=== PATIENT | male | born 1970 | race Caucasian/White ===

== ENCOUNTER 2025-08-04 10:32 | Inpatient (IN) ==
--- NOTE | 2025-08-04 10:44 | Emergency Department Note ---
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 Patient is accompanied by his mother who provide additional history. Approximately 2 weeks ago, the patient went on a trip to [facility] for hiking. He felt fatigued and lightheaded. Patient was also weak. He was finally urged by his friends to report to the emergency department. He was seen at a [facility] and found to have complete heart block leading to transfer to an ICU at a larger facility ([place], [place]). The patient was empirically treated for Lyme carditis. He remains on a doxycycline prescription. He has failed to improve. Again lightheaded and weak this morning. Called by the [employer] patch company to report to the emergency department given worsening bradycardia and concerns for third-degree AV block. He does state that he was originally on an antihypertensive but this was removed during last hospital admission. Notes that he was diagnosed with a blood clot in his left upper extremity and currently on Lovenox They deny fever or chills. No cough or congestion. Denies chest pain or palpitations. No shortness of breath. They deny abdominal pain, nausea and vomiting. No urinary complaints. No recent changes in bowel movements. Patient denies recent changes in medications or OTC supplements. Patient offers no other complaints, today. ADDITIONAL HISTORY OBTAINED: Per HPI Chronic Medical/Social Conditions Affecting Care: Per HPI PAST MEDICAL HISTORY: See Below PAST SURGICAL HISTORY: See Below FAMILY HISTORY: See Below SOCIAL HISTORY: See Below HOME MEDICATIONS: See Below ALLERGIES: See Below VITALS: See Below PHYSICAL EXAMINATION: GENERAL: Sitting up in bed, alert, well appearing, well nourished, no distress, non-toxic EYE EXAM: normal conjunctiva. PERRL and EOM's grossly intact. OROPHARYNX: no exudate, no erythema, lips, buccal mucosa, and tongue normal and mucous membranes are moist NECK: supple, no nuchal rigidity, no adenopathy, non-tender LUNGS: Clear to auscultation. Normal chest wall mechanics HEART: no murmurs, bradycardic rate, regular rhythm ABDOMEN: abdomen soft, non-tender, no masses, no rebound or guarding. BACK: Back is symmetrical on inspection and there is no deformity, no midline tenderness, no CVA tenderness. SKIN: no rashes and no bruising UPPER EXTREMITIES: upper extremities are grossly normal. LOWER EXTREMITIES: No pitting edema. NEURO EXAM: Normal sensorium, GCS 15, normal speech, no gross weakness of arms, no gross weakness of legs. MEDICAL DECISION MAKING: Differential diagnoses includes but not limited to high degree AVB, CHB, electrolyte derangements, ischemic disease, medication side effect, lyme carditis In summary, this is a 54 year old male who presented with CHB. Differential as above. Nursing notes and pertinent past medical records reviewed. Vital signs reviewed and the patient is bradycardic but otherwise afebrile and HDS. History and presentation revealed recent hospitalization in [place] ([facility]). He was in the ICU for CHB and ultimately discharged without intervention. He has had a ZIO patch in place. They continue to call him regarding worsening high degree AVB. Physical examination revealed no evidence of cardiogenic shock. As a result of my initial evaluation, we will plan to check basic labs and obtain lyme titers. I was connected with [facility] cardiology Dr. Gant at 1110. The patient will need a pacemaker. Plan for admission to the medicine service. Plan for metabolic workup. Please note the patient was treated empirically for Lyme carditis. He remains on doxycycline. I do not feel that the patient has Lyme carditis at this time. Patient and family report that he had negative testing at the outside facility. I would also expect the patient's condition to improve with antibiotics. Diagnostics interpreted by me include EKG and cardiac monitoring as listed below: -Cardiac Monitoring: An order was placed for continuous cardiac monitoring. The monitor shows a rate of 50-70s with regular rhythm. -ECG: Complete heart block at a rate of [address] segment changes to suggest STEMI. Patient completed laboratory studies and imaging. Results independently interpreted by me are minimal anemia. No significant leukocytosis. Isolated elevation of ALT. No elecrolyte derangements or kidney dysfunction. Lyme rapid is negative.. The patient was managed with close observation with [facility]. Plan for admission on telemetry for nonemergent PPM placement. Ultimately, the decision was made to admit the patient for CHB. I discussed the case with the hospitalist service via telephone/TigerText and they are agreeable to admit the patient to their services. Based on the above, including the patient's age, coexisting illnesses, labs, imaging, and exam findings the decision to treat as an inpatient. I discussed the patient with the hospitalist team who recommended admission to their services. They received the medications, treatments, interventions indicated above and their condition remained guarded. I discussed my findings with the patient and their family and they understand and agree with the treatment plan. All patient / family questions were answered to their satisfaction. Consults/Care Managements Discussions: Per MDM ER treatment provided: See above Procedures:none Critical Care: None The chart was completed utilizing [employer] Speech voice recognition software. Grammatical errors, random word insertions, pronoun errors, and incomplete sentences are an occasional consequence of this system due to software limitations, ambient noise, and hardware issues. Any formal questions or concerns about the content, text, or information contained within the body of this dictation should be directly addressed to the physician for clarification. Past Med/Surg History Problem List (Updated 08/06/25 @ 01:56 by Maulik Manzano DO) Anemia (Acute) AVB (atrioventricular block) (Acute) Complete heart block (Acute) Superficial thrombophlebitis (Acute) Acute basilic vein thrombosis (Acute) Social History Smoking Status: Never smoker Second Hand Exposure: No; Do You Dip or Chew Tobacco: No; Hx Alcohol Use: Yes Alcohol type: beer, wine and hard liquor Hx Substance Use: No Preferred Language: Brazilian Communication Ability: Effective Systems Testing Laboratory Technician Required: No Beliefs That Will Affect Care: None Current Living Situation: Spouse Other Information That Helps Us Care for You: No Feels Safe at Home: Yes Safety Concerns: Feels Safe At This Time Assistive Devices: None Allergies Allergies Allergy/AdvReac Type Severity Reaction Status Date / Time No Known Allergies Allergy Unverified 08/05/25 07:44 Home Meds Home Medications Medication Instructions Recorded Confirmed atorvastatin 10 mg tablet 10 mg PO DAILY 08/03/25 08/04/25 doxycycline hyclate 100 mg tablet 100 mg PO BID 08/03/25 08/04/25 olmesartan 20 mg tablet 20 mg PO DAILY 08/03/25 08/04/25 Previous Rx's Medication Instructions Recorded enoxaparin 40 mg/0.4 mL 40 mg (0.4 mL) subcut DAILY 45 08/03/25 subcutaneous syringe days #18 mL Results & Data (ED) Vital Signs Vital Signs - 24 hr 08/04/25 10:34 08/04/25 10:40 08/04/25 10:40 Temperature 37 C Temperature Source Temporal Artery Scan Pulse Rate 53 L Pulse Rate [Apical] 51 L Pulse Rate from SpO2 Sensor Respiratory Rate 18 16 Respiratory Effort / Characteristics Non-Labored Spontaneous Non-Labored Respiratory Depth Normal Normal Respiratory Pattern Regular Blood Pressure 165/94 H Blood Pressure [Right Arm] 145/94 H Blood Pressure Mean 117 Blood Pressure Mean [Right Arm] 111 Pulse Oximetry 100 100 Oxygen Delivery Method Room Air Room Air Sepsis Recent Fever Within 48 Hours No Sepsis New/Unexplained Change in Mental Status No Sepsis Action Taken by Nursing No Action Required 08/04/25 10:40 08/04/25 10:53 08/04/25 11:00 Temperature Temperature Source Pulse Rate 51 L 51 L Pulse Rate [Apical] Pulse Rate from SpO2 Sensor Respiratory Rate 16 Respiratory Effort / Characteristics Respiratory Depth Respiratory Pattern Blood Pressure 143/83 H Blood Pressure [Right Arm] Blood Pressure Mean 115 Blood Pressure Mean [Right Arm] Pulse Oximetry 99 100 Oxygen Delivery Method Room Air Room Air Sepsis Recent Fever Within 48 Hours Sepsis New/Unexplained Change in Mental Status Sepsis Action Taken by Nursing 08/04/25 11:15 08/04/25 11:30 08/04/25 11:33 Temperature Temperature Source Pulse Rate 51 L 71 68 Pulse Rate [Apical] Pulse Rate from SpO2 Sensor 69 Respiratory Rate 20 16 16 Respiratory Effort / Characteristics Respiratory Depth Respiratory Pattern Blood Pressure 175/108 H 163/103 H 144/98 H Blood Pressure [Right Arm] Blood Pressure Mean 131 120 113 Blood Pressure Mean [Right Arm] Pulse Oximetry 99 99 99 Oxygen Delivery Method Room Air Room Air Room Air Sepsis Recent Fever Within 48 Hours Sepsis New/Unexplained Change in Mental Status Sepsis Action Taken by Nursing Laboratory Data 08/04/25 10:55 08/05/25 05:29 Lab Results 08/04/25 Range/Units 10:55 WBC 6.23 (4.8-10.8) K/ul RBC 5.03 (4.70-6.10) M/uL Hgb 13.8 L (14.0-18.0) g/dl Hct 42.8 (42.0-52.0) % MCV 85.1 (80.0-100.0) fL MCH 27.4 (25.0-34.0) pg MCHC 32.2 (32.0-36.0) g/dL RDW Std Deviation 40.3 (36.4-46.3) fL RDW Coeff of Golden 13.1 (11.5-14.5) % Plt Count 295 (130-400) K/uL MPV 9.4 (9.4-12.4) fL Immature Gran % (Auto) 0.5 % Neut % (Auto) 54.2 % Lymph % (Auto) 24.9 % Crawford % (Auto) 12.7 % Eos % (Auto) 6.4 % Baso % (Auto) 1.3 % Neut # (Auto) 3.38 (1.40-6.50) K/uL Lymph # (Auto) 1.55 (1.20-3.40) K/uL Crawford # (Auto) 0.79 H (0.11-0.59) K/uL Eos # (Auto) 0.40 (0.00-0.50) K/uL Baso # (Auto) 0.08 (0.00-0.20) K/uL Immature Gran # (Auto) 0.03 (0.01-0.20) K/uL PT 10.6 (9.0-12.0) Seconds INR 1.0 (0.9-1.1) APTT 25 (21-31) Seconds PTT Ratio 0.9 Sodium 138 (136-145) mmol/L Potassium TNP Chloride 105 (98-107) mmol/L Carbon Dioxide 27 (21-32) mmol/L Anion Gap 6 (3-11) BUN 20 (6-23) mg/dl Creatinine 1.19 (0.6-1.4) mg/dl Est Cr Clr Drug Dosing 77.4 ml/min eGFR 71.69 BUN/Creatinine Ratio 16.8 (10-20) Glucose 94 (70-99(Fasting)) mg/dl Calcium 9.8 (8.6-10.3) mg/dl Phosphorus 3.6 (2.5-4.9) mg/dl Magnesium 2.2 (1.7-2.4) mg/dl Total Bilirubin 0.5 (0.2-1.0) mg/dl AST TNP ALT 73 H (7-52) U/L Alkaline Phosphatase 62 (34-104) U/L Troponin I High Sens 11.2 (0-20) pg/ml Total Protein 8.2 (6.0-8.3) gm/dl Albumin 4.4 (3.4-5.0) gm/dl Globulin 3.8 (2.5-4.0) gm/dl Albumin/Globulin Ratio 1.2 (0.9-2) Lipase 45 (11-82) U/L Anaplasma Smear See Comment Babesia Smear See Comment Lyme Disease Screen Negative (Negative) Administered Medications Acetaminophen (Acetaminophen 325 Mg Tab) 650 mg PO Q4H PRN PRN Reason: Pain or Fever Stop: 09/03/25 12:48 Last Admin: 08/05/25 19:40 Dose: 650 mg Documented By: Admin: 08/05/25 14:00 Dose: 650 mg Documented By: RUFUS Atorvastatin Calcium (Atorvastatin 10 Mg Tab) 10 mg PO DAILY [facility] Stop: 09/04/25 08:59 Last Admin: 08/05/25 12:32 Dose: 10 mg Documented By: RUFUS Losartan Potassium (Losartan Potassium 50 Mg Tab) 50 mg PO DAILY [facility] Stop: 09/04/25 08:59 Last Admin: 08/05/25 12:32 Dose: 50 mg Documented By: RUFUS Discontinued Medications Cefazolin Sodium (Cefazolin 330 Mg/Ml 1 Gm Vial) Confirm Administered Dose 1,980 mg .ROUTE .STK-MED ONE Stop: 08/05/25 07:30 Last Admin: 08/05/25 10:04 Dose: 1,980 mg Documented By: EVIN Fentanyl Citrate (Fentanyl Citrate Pf 100 Mcg/2 Ml Vial) Confirm Administered Dose 100 mcg .ROUTE .STK-MED ONE Stop: 08/05/25 07:30 Last Admin: 08/05/25 10:04 Dose: 100 mcg Documented By: EVIN Lidocaine HCl (Lidocaine 1% Local 20 Ml Vial) Confirm Administered Dose 20 ml .ROUTE .STK-MED ONE Stop: 08/05/25 06:50 Last Admin: 08/05/25 13:17 Dose: Not Given Documented By: CA Midazolam HCl (Midazolam Hcl 5 Mg/Ml 1 Ml Vial) Confirm Administered Dose 5 mg .ROUTE .STK-MED ONE Stop: 08/05/25 07:29 Last Increment: 08/05/25 10:03 Dose: 4 mg Documented By: EVIN Miscellaneous Information (Patient's Allergy Info Needs Entered) 1 each N/A Q30M STA Stop: 08/04/25 12:58 Last Admin: 08/04/25 13:17 Dose: 1 each Documented By: LMP Sterile Water (Water, Sterile For Inj 10 Ml Vial) Confirm Administered Dose 10 ml .ROUTE .STK-MED ONE Stop: 08/05/25 06:51 Last Admin: 08/05/25 13:17 Dose: Not Given Documented By: CA Vancomycin HCl (Vancomycin Hcl 1000mg/20ml Vial) Confirm Administered Dose 50 mg .ROUTE .STK-MED ONE Stop: 08/05/25 06:50 Last Admin: 08/05/25 13:17 Dose: Not Given Documented By: CA Imaging Data Radiologist's Impression: Chest X-Ray 08/04/25 10:44 XR chest 1V portable CLINICAL HISTORY: Chest pain, nonspecific COMPARISON STUDY: None FINDINGS: Heart size and pulmonary vasculature are normal. No consolidation or pleural effusion. No pneumothorax. IMPRESSION: No acute findings. ACT 112: Negative or not required by law. Electronically signed by: Shravan Kennedy M.D. 08/04/2025 11:06 AM Discharge Plan Visit Data Chief Complaint: Cardiac Assessment Stated Complaint: HAS HEART MONITOR ON, WAS CALLED TO COME IN ED Provider: Maulik Manzano Discharge Problem: Complete heart block, AVB (atrioventricular block), Anemia Patient Disposition: Admitted As Inpatient Condition: Serious Discharge Instructions Interventions: ED Discharge Assessment Last Done: 08/04/25 12:19
--- NOTE | 2025-08-04 11:07 | XRay Report ---
XR chest 1V portable CLINICAL HISTORY: Chest pain, nonspecific COMPARISON STUDY: None FINDINGS: Heart size and pulmonary vasculature are normal. No consolidation or pleural effusion. No p neumothorax. IMPRESSION: No acute findings. ACT 112: Negative or not required by law. Electronically signed by: Shravan Kennedy M.D. 08/04/2025 11:06 AM
[2025-08-04 11:08] LABS: Hematocrit (blood only) 42.8 % (42.0-52.0); Hemoglobin 13.8 g/dl (14.0-18.0); Immature Granulocytes # (auto) 0.03 K/uL (0.01-0.20); Immature Granulocytes % (auto) 0.5 %; Mean Corpuscular Hemoglobin 27.4 pg (25.0-34.0); Mean Corpuscular Volume 85.1 fL (80.0-100.0); Platelet Count 295 K/uL (130-400); RDW Standard Deviation 40.3 fL (36.4-46.3); Red Blood Count 5.03 M/uL (4.70-6.10); White Blood Count 6.23 K/ul (4.8-10.8)
[2025-08-04 11:50] LABS: Alanine Aminotransferase 73 U/L (7-52); Albumin Globulin Ratio 1.2 (0.9-2); Albumin Level 4.4 gm/dl (3.4-5.0); Alkaline Phosphatase 62 U/L (34-104); Anion Gap 6 (3-11); Bilirubin,Total 0.5 mg/dl (0.2-1.0); Blood Urea Nitrogen 20 mg/dl (6-23); Calcium 9.8 mg/dl (8.6-10.3); Carbon Dioxide 27 mmol/L (21-32); Chloride 105 mmol/L (98-107); Creatinine Clr Calc Pharmacy 77.4 ml/min; Globulin 3.8 gm/dl (2.5-4.0); Glucose 94 mg/dl (70-99(Fasting)); Lipase 45 U/L (11-82); Magnesium 2.2 mg/dl (1.7-2.4); Sodium 138 mmol/L (136-145); Total Protein 8.2 gm/dl (6.0-8.3)
[2025-08-04 12:15] LABS: INR 1.0 (0.9-1.1); Partial Thromboplastin Time 25 Seconds (21-31); Prothrombin Time 10.6 Seconds (9.0-12.0)
[2025-08-04] MEDS ORDERED: ONDANSETRON INJ 2 MG/ML 2 ML VIAL IV PRN (12:49)
[2025-08-04 12:54] LABS: Potassium 4.7 mmol/L (3.5-5.1)
--- NOTE | 2025-08-04 12:59 | History & Physical Report ---
Date of Service August 04, 2025 Assessment & Plan (1) Complete heart block: (2) Superficial thrombophlebitis: Plan 54-year-old man presents with symptomatic complete heart block with recent diagnosis of the same about 2 weeks ago. This was while hiking in [place]. Patient completed 10 days of doxycycline which will be discontinued. #Complete heart block placement on clutch operator. Patient of electrophysiology consultation. Attempting to get old records from [place]. Likely will repeat echo if not supplied in the report. Consideration for pacemaker n.p.o. after midnight. #Superficial phlebitis. Patient on Lovenox therapy. Distal be held for the possibility of a procedure. Admission and Anticipated Discharge Date Admission Date: August 04, 2025 History of Present Illness Primary Care Provider: Erik Aranda DO Patient presents for symptomatic complete heart block he is wearing his ZIO external clutch operator. 2 weeks ago he was in [facility] while hiking he felt fatigued and lightheaded. He was transported to a local hospital where is found to be in complete heart block and was then airlifted to [facility] in [place]. At that time he was treated for Lyme disease although Lyme serology testing was negative. He was continued on doxycycline postdischarge at the urging of his . Patient was recommended for follow-up here in the local area. He was also discharged on subcutaneous Lovenox for a left upper extremity blood clot associate with an IV patient presents with persistent symptoms. Retrospectively the patient states that he has been feeling some lightheadedness over the summer. This was attributed to hypertension and a new start of olmesartan. However now this might be some harbingers of symptoms. Additionally his mother of complications of cerebrovascular disease associated with rheumatoid toyed arthritis. Notably the patient does have some vitiligo and he may have an autoimmune component ER consulted Dr. Shah electrophysiology prior to admission and recommended bring the patient in for consideration of pacemaker placement. Upon my evaluation the patient had resume normal sinus rhythm with a heart rate in the 70s Allergies Allergy/AdvReac Type Severity Reaction Status Date / Time No Known Allergies Allergy Unverified 08/04/25 13:15 Home Medications Medication Instructions Recorded Confirmed Type atorvastatin 10 mg tablet 10 mg PO DAILY 08/03/25 08/04/25 History doxycycline hyclate 100 mg tablet 100 mg PO BID 08/03/25 08/04/25 History enoxaparin 40 mg/0.4 mL 40 mg (0.4 mL) subcut DAILY 45 08/03/25 08/04/25 Rx subcutaneous syringe days #18 mL olmesartan 20 mg tablet 20 mg PO DAILY 08/03/25 08/04/25 History Past Med/Surg History Problem List (Updated 08/04/25 @ 13:11 by Kerwin Antoine MD) Complete heart block Superficial thrombophlebitis (Acute) Acute basilic vein thrombosis (Acute) Social History Smoking Status: Never smoker Preferred Language: Danish Feels Safe at Home: Yes Review of Systems Review of Systems: Moderate distress, dizziness and fatigue no headache, no visual changes no speech or swallowing issues no chest pain, pressure or palpitations no shortness of breath, maybe mild cordero, no cough or wheezes no abdominal pain, nausea or vomiting, diarrhea or constipation no dysuria, hematuria or frequency no focal joint pain or swelling no back pain, CVA tenderness or radicular pain no bruising, bleeding or rashes no focal signs of weakness or numbness or altered sensation no complaints of anxiety or depression.. Physical Exam Physical Exam: The patient appeared well nourished and normally developed. Vital signs as documented. Head exam is normocephalic atraumatic Neck is without JVD, thyromegaly, or carotid bruits. Lungs are clear to auscultation, no focal loss of breath sounds Cardiac exam, Rhythm is regular.. No murmurs, rubs or gallops. Abdominal exam reveals normal bowel sounds, soft non tender, no masses Extremities are nonedematous and both pedal pulses are present Neurologic exam is alert and oriented, no focal loss of strength or sensation Skin is without bruises or rashes with the vitiligo on exam Psychologically is without concerns for anxiety or depression.. Results & Data Results & Data Vital Signs (Past 12 Hours) Vital Signs Temp Pulse Pulse Resp BP BP Pulse Ox 08/04/25 12:19 66 16 165/94 H 99 08/04/25 12:15 165/94 H 08/04/25 12:12 70 14 100 08/04/25 12:00 70 16 165/107 H 99 08/04/25 11:33 68 16 144/98 H 99 08/04/25 11:30 71 16 163/103 H 99 08/04/25 11:15 51 L 20 175/108 H 99 08/04/25 11:00 51 L 16 143/83 H 100 08/04/25 10:53 51 L 08/04/25 10:40 99 08/04/25 10:40 51 L 16 145/94 H 100 08/04/25 10:40 08/04/25 10:34 98.6 F 53 L 18 165/94 H 100 O2 Del Method 08/04/25 12:19 Room Air 08/04/25 12:15 08/04/25 12:12 08/04/25 12:00 Room Air 08/04/25 11:33 Room Air 08/04/25 11:30 Room Air 08/04/25 11:15 Room Air 08/04/25 11:00 Room Air 08/04/25 10:53 08/04/25 10:40 Room Air 08/04/25 10:40 Room Air 08/04/25 10:40 Room Air 08/04/25 10:34 Laboratory Results Reviewed CBC reviewed chemistry discussed case with Dr. Shah Code Status & VTE Plan VTE Prophylaxis Plan VTE Prophylaxis will be ordered: Yes PG Care Time/CCT Total # of Minutes Spent Total Time Spent with Patient: Total time spent is greater than 50% in coordination of care (as documented) at patient's floor/unit and/or counseling patient: Coding Level of Care Code 26865 INT INP/OBS CARE 2/55MIN Diagnoses Complete heart block I44.2 Superficial thrombophlebitis I80.8 Laterality: left Superficial thrombophlebitis-Involved body area: upper extremity (2) Superficial thrombophlebitis Laterality: left Superficial thrombophlebitis-Involved body area: upper extremity Qualified Code(s): I80.8 - Phlebitis and thrombophlebitis of other sites
[2025-08-04 13:31] LABS: Thyroid Stimulating Hormone 1.555 uIu/ml (0.300-4.500)
--- NOTE | 2025-08-04 15:04 | Cardiology Consultation ---
Date of Consultation August 04, 2025 Assessment & Plan (1) AVB (atrioventricular block): Plan 1. 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 This is consistent with his conduction pattern and his left bundle may conduct at lower heart rates but his right bundle pattern appears consistent. His right bundle block could potentially be old, I do not believe he has had an older electrocardiogram and he is not aware of this rhythm when he is in it. Perhaps his left bundle block pattern is a new finding and in the presence of a right bundle branch block results in high-grade or complete heart block. It does not appear to be Lyme related, there are infiltrative diseases that can cause it but that would not change our approach which would be pacemaker implantation. I discussed this with him in detail and his was part of the conversation on speaker phone using his cell phone. They are agreeable to pacemaker implantation and I have tentatively scheduled this for tomorrow morning at 8:00. It may be worthwhile to repeat the echocardiogram here to make sure he does not have some type of infiltrative disorder which would not change our approach with the pacemaker but might necessitate further evaluation or treatment. History of Present Illness Reason for Consultation: AV block Attending Physician: Kerwin Antoine MD History of Present Illness This is a 54-year-old male who has been quite healthy but is treated for hypercholesterolemia and hypertension. He was hiking in [place] on July 26, 2025 and developed extreme fatigue with exertion requiring him to use his hiking poles even on the flat. He had not really felt that way before although does note in retrospect that occasionally when he goes up the stairs he would feel a little bit of fatigue. He has had no lightheadedness, presyncope or syncope. He did go to a hospital in [place] where he had an evaluation including an evaluation for Lyme when the identified heart block (they felt that it probably was not Lyme but treated with doxycycline which he has been on since). He was told his echocardiogram looked good but we have not seen it or report. He was discharged with a ZIO monitor. He was seen in the [facility] emergency room on August 03, 2025 for diz ziness thrombophlebitis from his IV site the prior week. He was started on Lovenox for this. There was not felt to be any sign of infection. He has generally been feeling relatively well, in fact he went to the gym and played hockey with no difficulty but intermittently would feel a little bit "off" however his monitor is in [facility] and he was identified as having heart block during the night and he came into the emergency room this morning. In the emergency room high-grade AV block was identified (I do not think it is complete heart block as there are occasional conducted beats) although it is close to that. He still has not had severe hemodynamic symptoms. While in the emergency room he had high-grade AV block for several hours, however now on telemetry that has resolved. His electrocardiogram from the emergency room shows predominantly A-V dissociation but with what appears to be 1 conducted beat, he has a left bundle escape rhythm predominantly at about 50 bpm. An electrocardiogram done at the time of my evaluation shows sinus rhythm with one-to-one conduction and a right bundle branch block pattern. His heart rate is faster with the high-grade AV block and it may be a rate related block. Laboratory studies are unremarkable. Allergies Allergy/AdvReac Type Severity Reaction Status Date / Time No Known Allergies Allergy Unverified 08/04/25 13:15 Home Medications Medication Instructions Recorded Confirmed Type atorvastatin 10 mg tablet 10 mg PO DAILY 08/03/25 08/04/25 History doxycycline hyclate 100 mg tablet 100 mg PO BID 08/03/25 08/04/25 History enoxaparin 40 mg/0.4 mL 40 mg (0.4 mL) subcut DAILY 45 08/03/25 08/04/25 Rx subcutaneous syringe days #18 mL olmesartan 20 mg tablet 20 mg PO DAILY 08/03/25 08/04/25 History Patient History Social History Smoking Status: Never smoker Second Hand Exposure: No; Do You Dip or Chew Tobacco: No; Hx Alcohol Use: Yes Alcohol type: beer, wine and hard liquor Hx Substance Use: No Preferred Language: [employer] Required: No Beliefs That Will Affect Care: None Current Living Situation: Spouse Other Information That Helps Us Care for You: No Feels Safe at Home: Yes Safety Concerns: Feels Safe At This Time Assistive Devices: None Review of Systems Review of Systems: All systems reviewed & are unremarkable except as noted in HPI & below Physical Exam Physical Exam: Constitutional: Alert, cooperative and in no distress. HEENT: Unremarkable Neck: No jugular venous distention, carotid pulses are normal and equal bilaterally without bruits. Pulmonary: Clear to auscultation bilaterally. Cardiac: Regular rhythm with no murmur, gallop or rub. Abdomen: Soft, nontender with normal bowel sounds. Extremities: No edema. Distal pulses intact. Neurologic: No focal findings. Gait is steady. Skin: No rash, ecchymoses or petechiae. Results & Data Vital Signs (Past 12 Hours) Vital Signs Temp Pulse Pulse Resp BP BP Pulse Ox 08/04/25 12:52 36.5 C 64 152/92 H 100 08/04/25 12:19 66 16 165/94 H 99 08/04/25 12:15 165/94 H 08/04/25 12:12 70 14 100 08/04/25 12:00 70 16 165/107 H 99 08/04/25 11:33 68 16 144/98 H 99 08/04/25 11:30 71 16 163/103 H 99 08/04/25 11:15 51 L 20 175/108 H 99 08/04/25 11:00 51 L 16 143/83 H 100 08/04/25 10:53 51 L 08/04/25 10:40 99 08/04/25 10:40 51 L 16 145/94 H 100 08/04/25 10:40 08/04/25 10:34 37 C 53 L 18 165/94 H 100 O2 Del Method 08/04/25 12:52 Room Air 08/04/25 12:19 Room Air 08/04/25 12:15 08/04/25 12:12 08/04/25 12:00 Room Air 08/04/25 11:33 Room Air 08/04/25 11:30 Room Air 08/04/25 11:15 Room Air 08/04/25 11:00 Room Air 08/04/25 10:53 08/04/25 10:40 Room Air 08/04/25 10:40 Room Air 08/04/25 10:40 Room Air 08/04/25 10:34 Laboratory Results Cardiac Enzymes 08/04/25 08/04/25 Range/Units 10:55 12:10 AST TNP 59 H Troponin I High Sens 11.2 (0-20) pg/ml Coagulation 10/13/25 Range/Units 10:55 PT 10.6 (9.0-12.0) Seconds APTT 25 (21-31) Seconds CBC 08/04/25 Range/Units 10:55 WBC 6.23 (4.8-10.8) K/ul RBC 5.03 (4.70-6.10) M/uL Hgb 13.8 L (14.0-18.0) g/dl Hct 42.8 (42.0-52.0) % Plt Count 295 (130-400) K/uL Neut # (Auto) 3.38 (1.40-6.50) K/uL Lymph # (Auto) 1.55 (1.20-3.40) K/uL [place] # (Auto) 0.79 H (0.11-0.59) K/uL Eos # (Auto) 0.40 (0.00-0.50) K/uL Baso # (Auto) 0.08 (0.00-0.20) K/uL Comprehensive Metabolic Panel 08/04/25 08/04/25 Range/Units 10:55 12:10 Sodium 138 (136-145) mmol/L Potassium TNP 4.7 Chloride 105 (98-107) mmol/L Carbon Dioxide 27 (21-32) mmol/L BUN 20 (6-23) mg/dl Creatinine 1.19 (0.6-1.4) mg/dl Glucose 94 (70-99(Fasting)) mg/dl Calcium 9.8 (8.6-10.3) mg/dl AST TNP 59 H ALT 73 H (7-52) U/L Alkaline Phosphatase 62 (34-104) U/L Total Protein 8.2 (6.0-8.3) gm/dl Albumin 4.4 (3.4-5.0) gm/dl Intake and Output 08/03/25 08/04/25 08/04/25 22:59 06:59 14:59 Other: Weight 96.5 kg Weight Measurement Method Standing Scale Patient Weight 08/05/25 06:59 Weight 96.5 kg Diagnostic Findings Telemetry: Sinus rhythm with high-grade AV block in the emergency room, sinus rhythm with right bundle branch block (at a slower sinus rhythm) after admission on telemetry PG Care Time/CCT Total # of Minutes Spent Total Time Spent with Patient: Total time spent is greater than 50% in coordination of care (as documented) at patient's floor/unit and/or counseling patient: Coding Level of Care Code 27514 IN/OBS CONSULT LVL 4,60M Diagnoses AVB (atrioventricular block) I44.30
--- NOTE | 2025-08-04 16:16 | Electrocardiogram Report ---
Test Reason : Blood Pressure : */* mmHG Vent. Rate : 51 BPM Atrial Rate : 60 BPM P-R Int : * ms QRS Dur : 146 ms QT Int : 466 ms P-R-T Axes : 56 -66 93 degrees QTcB Int : 429 ms Sinus rhythm with high grade AV block and Wide QRS rhythm with occasional conducted complexes Left axis deviation Left bundle branch block Abnormal ECG No previous ECGs available Confirmed by Per Gant ([id number]) on 08/04/2025 4:15:44 PM Referred By: REFERRED SELF Confirmed By: Per Gant
--- NOTE | 2025-08-04 16:25 | Electrocardiogram Report ---
Test Reason : Blood Pressure : */* mmHG Vent. Rate : 77 BPM Atrial Rate : 77 BPM P-R Int : 200 ms QRS Dur : 144 ms QT Int : 428 ms P-R-T Axes : 51 64 31 degrees QTcB Int : 484 ms Normal sinus rhythm Right bundle branch block Abnormal ECG When compared with ECG of 04-Aug-2025 10:41, (unconfirmed) Sinus rhythm has replaced Wide QRS rhythm Vent. rate has increased by 26 bpm Confirmed by Per Gant ([id number]) on 08/04/2025 4:24:33 PM Referred By: REFERRED SELF Confirmed By: Per Gant
[2025-08-05 07:07] LABS: Anion Gap 7.0 (3-11); Blood Urea Nitrogen 19.0 mg/dl (6-23); Calcium 9.2 mg/dl (8.6-10.3); Carbon Dioxide 24.0 mmol/L (21-32); Chloride 107.0 mmol/L (98-107); Creatinine Clr Calc Pharmacy 78.8 ml/min; Glucose 91.0 mg/dl (70-99(Fasting)); Magnesium 2.1 mg/dl (1.7-2.4); Potassium 4.1 mmol/L (3.5-5.1); Sodium 138.0 mmol/L (136-145)
--- NOTE | 2025-08-05 07:29 | Hospitalist Progress Note ---
Date of Service August 05, 2025 Assessment & Plan (1) Complete heart block: (2) Superficial thrombophlebitis: Plan 54-year-old man presents with symptomatic complete heart block with recent diagnosis of the same about 2 weeks ago. This was while hiking in [place]. Patient completed 10 days of doxycycline which will be discontinued. #Complete heart block pacemaker placed, echo with preserved EF , echo not diagnostic for amyloid, but did show heterogeneous echogenicity, will have cardiac follow up as outpt #Superficial phlebitis. Patient on Lovenox therapy, may not need to continue post dc. Distal be held for the possibility of a procedure. Admission and Anticipated Discharge Date Admission Date: August 04, 2025 Subjective pt has significant symptomatic pauses in the cardiac pavilion, did have pacemaker placed and has paced rhythm at this time Physical Exam Physical Exam: The patient appeared well nourished and normally developed. Vital signs as documented. Head exam is normocephalic atraumatic Neck is without JVD, thyromegaly, or carotid bruits. Lungs are clear to auscultation, no focal loss of breath sounds Cardiac exam, Rhythm is regular.. No murmurs, rubs or gallops. Abdominal exam reveals normal bowel sounds, soft non tender, no masses Extremities are nonedematous and both pedal pulses are present Neurologic exam is alert and oriented, no focal loss of strength or sensation Skin is without bruises or rashes with the vitiligo on exam Psychologically is without concerns for anxiety or depression.. Results & Data Results & Data Vital Signs (Past 12 Hours) Vital Signs Temp Pulse Pulse Resp BP Pulse Ox O2 Del Method 08/05/25 04:10 98.4 F 61 18 135/83 97 Room Air 08/04/25 23:27 98.1 F 60 17 117/71 96 Room Air 08/04/25 22:23 64 PG Care Time/CCT Total # of Minutes Spent Total Time Spent with Patient: Total time spent is greater than 50% in coordination of care (as documented) at patient's floor/unit and/or counseling patient: Coding Level of Care Code 61705 SUB INP/OBS CARE 2/35MIN Diagnoses Complete heart block I44.2 Superficial thrombophlebitis I80.8 Laterality: left Superficial thrombophlebitis-Involved body area: upper extremity (2) Superficial thrombophlebitis Laterality: left Superficial thrombophlebitis-Involved body area: upper extremity Qualified Code(s): I80.8 - Phlebitis and thrombophlebitis of other sites
--- NOTE | 2025-08-05 08:35 | Pre Anesthesia Assessment ---
Date of Service August 05, 2025 Pre Sedation Assessment Vital Signs Temp Pulse Pulse Resp BP BP Pulse Ox 08/05/25 07:40 66 18 143/90 H 99 08/05/25 07:00 63 08/05/25 04:10 36.9 C 61 18 135/83 97 08/04/25 23:27 36.7 C 60 17 117/71 96 08/04/25 22:23 64 08/04/25 19:09 36.7 C 68 18 127/88 98 08/04/25 16:29 36.6 C 69 23 165/103 H 99 08/04/25 12:52 36.5 C 64 152/92 H 100 08/04/25 12:50 68 08/04/25 12:19 66 16 165/94 H 99 08/04/25 12:15 165/94 H 08/04/25 12:12 70 14 100 08/04/25 12:00 70 16 165/107 H 99 08/04/25 11:33 68 16 144/98 H 99 08/04/25 11:30 71 16 163/103 H 99 08/04/25 11:15 51 L 20 175/108 H 99 08/04/25 11:00 51 L 16 143/83 H 100 08/04/25 10:53 51 L 08/04/25 10:40 99 08/04/25 10:40 51 L 16 145/94 H 100 08/04/25 10:40 08/04/25 10:34 37 C 53 L 18 165/94 H 100 O2 Del Method 08/05/25 07:40 Room Air 08/05/25 07:00 08/05/25 04:10 Room Air 08/04/25 23:27 Room Air 08/04/25 22:23 08/04/25 19:09 Room Air 08/04/25 16:29 Room Air 08/04/25 12:52 Room Air 08/04/25 12:50 08/04/25 12:19 Room Air 08/04/25 12:15 08/04/25 12:12 08/04/25 12:00 Room Air 08/04/25 11:33 Room Air 08/04/25 11:30 Room Air 08/04/25 11:15 Room Air 08/04/25 11:00 Room Air 08/04/25 10:53 08/04/25 10:40 Room Air 08/04/25 10:40 Room Air 08/04/25 10:40 Room Air 08/04/25 10:34 Cardiovascular RRR, no murmur, no edema + bradycardic Respiratory normal respiratory effort, lungs clear to auscultation Pre-Sedation Airway Assessment Smoking Status: Never smoker Hx Sleep Apnea: No Short, Thick Neck: No Thyromental Distance: > or= 3.5 Finger Breadths Oral Cavity: + WNL Mallampati Class: III ASA: ASA3 NPO Status Date of Last Intake of Fluids: 08/04/25 Time of Last Intake of Fluids: 21:00 Date of Last Intake of Solid Food: 08/04/25 Time of Last Intake of Solid Foods: 20:00 Procedure Planning Contraindications for Sedation: none Current Medications Reviewed: Yes Notes The planned sedation has been discussed with the patient. Informed Consent was obtained. I have identified the patient, determined the appropriateness of sedation and have assessed the patient immediately prior to the procedure. All medicine(s) and interventions are by my order.
--- NOTE | 2025-08-05 08:37 | History & Physical Bridge Note ---
Date of Service August 05, 2025 History & Physical Bridge Note I have examined the patient, reviewed the History & Physical and in the interval since the performance of the History & Physical I have noted the following changes of clinical significance: He has continued to have episodes of heart block with a left bundle escape rhythm. I reviewed his echocardiogram and his ventricle appears quite thick and I am concerned that he might have sarcoid or amyloid, we will have to investigate that but that does not change our approach. I reviewed the indications, procedure, risks and alternatives with the patient with his present, and answered all questions. Patient understands and agrees to the procedure. Consent obtained. I also reviewed the risks and use of sedation, patient understands and consent obtained.
[2025-08-05] MEDS: MIDAZOLAM HCL 5 MG/ML 1 ML VIAL ONE (10:03)
[2025-08-05] MEDS: ceFAZolin 330 MG/ML 1 GM VIAL ONE (10:04)
--- NOTE | 2025-08-05 10:28 | Post Anesthesia Assessment ---
Date of Service August 05, 2025 Post Sedation Assessment Vital Signs Temp Pulse Pulse Resp BP BP Pulse Ox 08/05/25 07:40 66 18 143/90 H 99 08/05/25 07:00 63 08/05/25 04:10 36.9 C 61 18 135/83 97 08/04/25 23:27 36.7 C 60 17 117/71 96 08/04/25 22:23 64 08/04/25 19:09 36.7 C 68 18 127/88 98 08/04/25 16:29 36.6 C 69 23 165/103 H 99 08/04/25 12:52 36.5 C 64 152/92 H 100 08/04/25 12:50 68 08/04/25 12:19 66 16 165/94 H 99 08/04/25 12:15 165/94 H 08/04/25 12:12 70 14 100 08/04/25 12:00 70 16 165/107 H 99 08/04/25 11:33 68 16 144/98 H 99 08/04/25 11:30 71 16 163/103 H 99 08/04/25 11:15 51 L 20 175/108 H 99 08/04/25 11:00 51 L 16 143/83 H 100 08/04/25 10:53 51 L 08/04/25 10:40 99 08/04/25 10:40 51 L 16 145/94 H 100 08/04/25 10:40 08/04/25 10:34 37 C 53 L 18 165/94 H 100 O2 Del Method 08/05/25 07:40 Room Air 08/05/25 07:00 08/05/25 04:10 Room Air 08/04/25 23:27 Room Air 08/04/25 22:23 08/04/25 19:09 Room Air 08/04/25 16:29 Room Air 08/04/25 12:52 Room Air 08/04/25 12:50 08/04/25 12:19 Room Air 08/04/25 12:15 08/04/25 12:12 08/04/25 12:00 Room Air 08/04/25 11:33 Room Air 08/04/25 11:30 Room Air 08/04/25 11:15 Room Air 08/04/25 11:00 Room Air 08/04/25 10:53 08/04/25 10:40 Room Air 08/04/25 10:40 Room Air 08/04/25 10:40 Room Air 08/04/25 10:34 Recovery Score Activity: Moves 4 extremities Respiration: Deep Breath/Cough Circulation: +/-20% PreAnes Value Consciousness: Fully Awake Oxygen Saturation: > 92% On Room Air Discharge Sedation Level of Care: Fast Track Phase II Post Sedation Plan On clinical assessment, the patient appears to have tolerated the sedation without complications. Patient is recovering as anticipated. Patient will continue to be monitored by nursing and may be discharged when sedation discharge criteria are met per below protocol. Upon Completions of procedure up to 15 minutes continue every 5 minute vital signs and the P.A.R. score; then discharge to a Phase I or Fast Track to Phase II per the following guidelines: * Discharge Patient to appropriate Phase II area if PAR is 8 or greater or return to pre- procedure baseline. The post - procedure orders will be as di rected. * If PAR score is less than 8 or not return to pre-procedure baseline then patient will follow Phase I monitoring till PAR is reached for Phase II. The Phase I may be done in procedure room or may call to secure a Phase I area. * If naloxone or flumazenil are used for reversal, hold in Phase I for continued monitoring from when last reversal dose was given for a minimum of 60 minutes or longer pending the nurse and/or physician discretion of patient condition before discharge to Phase II. Please call the Sedation Physician to re-evaluate and complete post-note for discharge to Phase II area. Do NOT discharge from procedure sedation or Phase 1 until post- sedation evaluation note is complete by procedure /sedation MD Sedation Discharge Instructions to be given to the patient at discharge to home.
--- NOTE | 2025-08-05 10:31 | Electrophysiology Report ---
Date of Service August 05, 2025 Electrophysiology Procedure Electrophysiology Procedure Report Preoperative diagnosis: Intermittent complete heart block Postoperative diagnosis: Same Procedure: Dual-chamber left bundle branch pacemaker implantation Surgeon: Per Gant MD Estimated blood loss: 20 cc Complications: None Disposition: Content Curator recovery Procedure details: After obtaining informed consent for the procedure, the patient was brought to the laboratory and prepped and draped in the standard sterile manner. The left prepectoral region was anesthetized with 1% lidocaine local anesthetic and left axillary venipuncture was performed by percutaneous technique and a guidewire placed through the left subclavian vein into the superior vena cava. The area was further infiltrated with 1% lidocaine local anesthetic and a 5 cm incision was made parallel to the left clavicle and 2 cm below it and carried down to the anterior pectoralis fascia. A pacemaker pocket was formed by blunt dissection anterior to the pectoralis fascia and a vancomycin-soaked sponge was placed in the pocket. A 9 [place] Med[employer] lead introducer was placed over the guidewire into the left subclavian vein, the dilator and guidewire were removed and a bipolar active fixation steroid tipped atrial lead was advanced through the introducer into the superior vena cava. A guidewire was placed through the introducer and the introducer was stripped from the lead and guidewire. The atrial lead was temporarily positioned in the right ventricle for backup pacing. A 7 [place] Medtronic lead introducer was placed over the guidewire into the left subclavian vein, the dilator and guidewire were removed. A C315 His 02 septal sheath was advanced through the introducer over a guidewire and advanced into the right ventricular outflow tract. The guidewire and dilator were removed and the kate th was positioned in a mid septal location. A bipolar active fixation steroid tipped ventricular lead was advanced through the introducer and rotated to advance the screw into the septum. Septal penetration was confirmed by electrogram morphology. Pacing and sensing thresholds were evaluated in bipolar configuration and are noted on the data sheet. The septal sheath was stripped away from the lead. A guidewire was placed back through the introducer and the introducer was removed over the the guidewire. The atrial lead was then removed from the right ventricle. Using a curved stylette the atrial lead was positioned in the region of the atrial appendage and the screw extended fixing the lead in position. Pacing and sensing thresholds were evaluated in bipolar configuration and are recorded on the implant data sheet. Once the leads were in position they were attached to the anterior pectoralis fascia using 2 sutures of 2-0 silk around each lead collar. The vancomycin soaked sponge was removed from the pocket, hemostasis was obtained, the pacemaker was attached to the leads and placed in the pocket with the leads coiled beneath it. The incision was closed with a running double subcutaneous closure of 3-0 Vicryl absorbable suture, followed by running subcuticular skin closure of 4-0 Vicryl absorbable suture. Bacitracin ointment was placed on the incision and a dressing applied. [facility] [place] Electrophysiology codes Indication for Procedure (1) AVB (atrioventricular block): Pacing Procedure 1: Pacin Insert/Replace Pacer A & V PG Moderate Sedation Codes Moderate Sedation Codes Procedure 1: Sedation/Anesthesia: 05123 Mod Sedation by the same physician;Init15 Min Child Age 5 & Up Procedure 2: Sedation/Anesthesia: 16526 Mod Sedation by the same physician; Ea [id number] Minutes
[2025-08-05] MEDS ORDERED: ACETAMINOPHEN W/CODEINE #3 1 TAB PO PRN (10:47)
--- NOTE | 2025-08-05 11:25 | XCELERA ---
[id number]
[2025-08-05] MEDS: ATORVASTATIN 10 MG TAB PO SCH (12:32)
[2025-08-05] MEDS: LOSARTAN POTASSIUM 50 MG TAB PO SCH (12:32)
[2025-08-05] MEDS: LIDOCAINE 1% LOCAL 20 ML VIAL ONE (13:17)
[2025-08-05] MEDS: VANCOMYCIN HCL 1000MG/20ML VIAL ONE (13:17)
[2025-08-05] MEDS: WATER, STERILE FOR INJ 10 ML VIAL ONE (13:17)
[2025-08-05] MEDS: ACETAMINOPHEN 325 MG TAB PO PRN (14:00)
[2025-08-05] MEDS ORDERED: ENOXAPARIN INJ 40 MG/0.4 ML SYR SQ SCH (21:00)
[2025-08-06 06:55] LABS: Anion Gap 7.0 (3-11); Blood Urea Nitrogen 17.0 mg/dl (6-23); Calcium 9.3 mg/dl (8.6-10.3); Carbon Dioxide 25.0 mmol/L (21-32); Chloride 106.0 mmol/L (98-107); Creatinine Clr Calc Pharmacy 79.5 ml/min; Glucose 93.0 mg/dl (70-99(Fasting)); Magnesium 2.2 mg/dl (1.7-2.4); Potassium 4.3 mmol/L (3.5-5.1); Sodium 138.0 mmol/L (136-145)
--- NOTE | 2025-08-06 09:17 | Cardiology Progress Note ---
Date of Service August 06, 2025 Assessment & Plan (1) Status post placement of cardiac pacemaker: (2) AVB (atrioventricular block): (3) Cardiomyopathy: Plan 1. Pacemaker implantation: Postop day #1, the site looks good, the x-ray shows good lead placement and the pacemaker has excellent electrical parameters. He is stable for discharge. I will arrange a 2-day incision evaluation. 2. AV block: During the procedure yesterday he developed complete heart block without an escape rhythm, that will evidently be intermittent. The pacemaker can accommodate these changes. Today he has intact AV conduction at baseline, however when atrial pacing at 90 bpm he is 2-1 with his nikolski conduction. This is likely to progress over time. 3. Cardiomyopathy: I am concerned that he has some type of infiltrative cardiomyopathy, I did send off blood work for amyloid and after 30 days (assuming this is negative) we should get a cardiac MRI to exclude sarcoid which will be done as an outpatient. Guidelines are to wait 30 days after pacemaker implantation to perform an MRI. He does not have a dilated cardiomyopathy, it is hypertrophic but not obstructive, therefore I have not tested him for other causes of cardiomyopathy. Admission and Anticipated Discharge Date Admission Date: August 04, 2025 Subjective He is feeling well today, minimal incisional discomfort. No chest pain or shortness of breath. No palpitations or sensation of pacing. Physical Exam Physical Exam: The incision is clean and dry, no ecchymosis, erythema or swelling. Dressing changed. Cardiac rhythm is regular with no rub Lungs are clear Results & Data Vital Signs (Past 12 Hours) Vital Signs Temp Pulse Pulse Resp BP Pulse Ox O2 Del Method 08/06/25 08:46 63 08/06/25 08:04 36.6 C 84 20 119/85 97 Room Air 08/06/25 03:44 36.9 C 73 18 115/85 96 Room Air 08/05/25 22:42 36.9 C 71 18 123/79 94 Room Air 08/05/25 21:44 70 Laboratory Results Comprehensive Metabolic Panel 08/06/25 Range/Units 05:29 Sodium 138 (136-145) mmol/L Potassium 4.3 (3.5-5.1) mmol/L Chloride 106 (98-107) mmol/L Carbon Dioxide 25 (21-32) mmol/L BUN 17 (6-23) mg/dl Creatinine 1.15 (0.6-1.4) mg/dl Glucose 93 (70-99(Fasting)) mg/dl Calcium 9.3 (8.6-10.3) mg/dl Intake and Output 08/05/25 08/06/25 08/06/25 22:59 06:59 14:59 Intake Total 700 / 1050 350 / 1050 Balance 700 / 1050 350 / 1050 Intake: Oral 700 / 1050 350 / 1050 Other: # Unmeasured Voids 1 1 Weight 96.7 kg Weight Measurement Method Built in [facility] Diagnostic Findings Postop ECG: Sinus rhythm with atrial sensing and ventricular pacing, excellent left bundle paced complex morphology Telemetry: Sinus rhythm with ventricular pacing throughout Chest x-ray: Good lead position, no pneumothorax Pacemaker evaluation: Excellent pacing and sensing characteristics PG Care Time/CCT Total # of Minutes Spent Total Time Spent with Patient: Total time spent is greater than 50% in coordination of care (as documented) at patient's floor/unit and/or counseling patient: Coding Level of Care Code 09373 Post Operative Follow-Up Diagnoses Status post placement of cardiac pacemaker Z95.0 AVB (atrioventricular block) I44.30 Cardiomyopathy I42.9 CPT Codes Dual Lead Pacemaker System - [id number] ([id number])
--- NOTE | 2025-08-06 10:21 | XRay Report ---
XR chest 2V PA/lateral CLINICAL HISTORY: EXACT TIME ORDERED Evaluate for pneumothorax and l COMPARISON STUDY: 08/04/2025 FINDINGS: There is a left-sided cardiac pacemaker. No pneumothorax seen. No consolidation or pleural effusion. IMPRESSION: No pneumothorax. ACT 112: Negative or not required by law. Electronically signed by: Shravan Kennedy M.D. 08/06/2025 10:20 AM
[2025-08-06 10:24] VITALS: BP 137/95; PULSE 70; RESP 21; TEMP 98.1; O2SAT 98
[2025-08-06] MEDS: INFLUENZA VACC TS2025-26(6m+)/PF (IIV3) 0.5mL Syr IM ONE (11:09)
[2025-08-06] MEDS: PNEUMOCOCCAL VACCINE (PCV20) 20-VAL CONJ-DIP CRM/PF 0.5 ML SYR IM ONE (11:09)
--- NOTE | 2025-08-06 11:19 | Discharge Summary ---
Discharge Summary Date of Service August 06, 2025 Principal Dx & Hospital Course #1 = Principal Diagnosis (1) Complete heart block: (2) Superficial thrombophlebitis: Nilton Helton is a 54 year old male admitted to [facility] from August 04 to the 2024 due to symptomatic complete heart block on his ZIO external gambling monitor. This was treated with pacemaker insertion on August 05, [address] Gant. Pacemaker checks in the morning were normal and CXR did not show any pneumothorax. No specific treatment is recommended for your previously diagnosed superficial thrombophlebitis other than compression alone. If this is getting worse recommend he follows up with his primary care provider to consider repeat ultrasound and possible anticoagulation at that time. Echocardiogram was concerning for heterogeneous echogenicity which could represent infiltrative process in the myocardium versus normal variant. He will follow-up with cardiology for possible cardiac MRI for further evaluation of this. Amyloidosis labs have been sent and will also be followed by cardiology. Notes For Next Care Provider Follow up pacemaker check, labs for amyloidosis and possible cardiac MRI with electrophysiology Follow up superficial phlebitis with PCP Medication Changes From Visit Lovenox stopped as not needed for superficial phlebitis Stopped doxycycline as no evidence of lyme disease Admission HPI Per Admitting Provider Patient presents for symptomatic complete heart block he is wearing his ZIO external gambling monitor. 2 weeks ago he was in [facility] while hiking he felt fatigued and lightheaded. He was transported to a local hospital where is found to be in complete heart block and was then airlifted to [facility] in [place]. At that time he was treated for Lyme disease although Lyme serology testing was negative. He was continued on doxycycline postdischarge at the urging of his . Patient was recommended for follow-up here in the local area. He was also discharged on subcutaneous Lovenox for a left upper extremity blood clot associate with an IV patient presents with persistent symptoms. Retrospectively the patient states that he has been feeling some lightheadedness over the summer. This was attributed to hypertension and a new start of olmesartan. However now this might be some harbingers of symptoms. Additionally his mother of complications of cerebrovascular disease associated with rheumatoid toyed arthritis. Notably the patient does have some vitiligo and he may have an autoimmune component ER consulted Dr. Shah electrophysiology prior to admission and recommended bring the patient in for consideration of pacemaker placement. Upon my evaluation the patient had resume normal sinus rhythm with a heart rate in the 70s Discharge Exam Respiratory normal respiratory effort, lungs clear to auscultation Cardiovascular RRR, no murmur, no edema Discharge Plan Discharge Items Patient Disposition: Home - Self-Care Reason For Visit: COMPLETE HEART BLOCK Discharge Diagnosis: Complete heart block Superficial thrombosis Condition on Discharge: Serious Activity: Per Instructions section Non-emergency contact: Senior Project Manager Call non-emergency contact if: you have any medication questions and your symptoms worsen Follow-up/Referrals: Per Gant MD [Physician] - 08/20/25 2:00 pm (Cardiology follow up scheduled on 08/20/25 at 2:00) Erik Aranda DO [Primary Care Provider] - 08/13/25 9:00 am (Primary Care Hospital follow up schedule on 08/13/25 at 9:00) Diet: Regular Addtl Attending Provider Instructions: You were admitted to [facility] from August 04 to the 2024 due to symptomatic complete heart block with your ZIO external gambling monitor. This was treated with pacemaker insertion on August 05, [address] Gant. Pacemaker checks in the morning were normal and CXR did not show any pneumothorax. Please follow post operative instructions below. No specific treatment is recommended for your previously diagnosed superficial thrombophlebitis other than compression alone. If this is getting worse recommend contacting your primary care provider to consider repeat ultrasound and possible anticoagulation at that time. Please follow up with cardiology regarding ongoing workup of your cardiomyopathy including labs outstanding on discharge and plan to organize cardiac MRI as an outpatient. ACTIVITY RECOMMENDATIONS: * Do not raise affected arm over head for 2 weeks. SPECIAL CARE INSTRUCTIONS: * If bleeding occurs, apply direct pressure to area for 5 minutes. * Call your doctor if you have severe pain, fever, drainage or bleeding at site. * Keep dressing on and dry for 48 hours then remove. * Keep any scheduled doctor's appointment. * Implant Card - hand held device with website information given. SKIN IRRITATION: * You may experience some redness and/or swelling in the area where radiation was administered. If any skin irritation occurs, please contact your family physician. FOLLOW UP VISIT: Keep any scheduled doctor appointments. Pending Studies at Discharge: Yes (protein serum and urine electrophoresis) Stand-Alone Forms: My [facility] [employer], Smoking Cessation Medications and DC Order Prescriptions: Continued atorvastatin 10 mg tablet 10 mg PO DAILY olmesartan 20 mg tablet 20 mg PO DAILY Discontinued doxycycline hyclate 100 mg tablet 100 mg PO BID enoxaparin 40 mg/0.4 mL syringe 40 mg subcut DAILY 45 Days Qty: 18 0RF Discharge Orders: Discharge Order (Routine); Ordered 08/06/25 Ordered By: Aldo Orozco/Other Patient Handouts: Pacemakers, ED Thrombophlebitis, Superficial Admission Data Admit Date/Time: 08/04/25 11:36 Attending Provider: Aldo Freeman Admit Provider: Kerwin Antoine Primary Care Provider: Erik Aranda Other Providers: Per Gant; Topher Camejo Other Interventions: Discharge Summary Assessment (RN) Last Done: 08/06/25 11:29 Hospital Stay Data Consultations 08/04/25 11:22 Consult Cardiology Stat ED Decision to Admit Stat 08/04/25 11:36 Consult Cardiology Routine Procedures Performed Operation Date: 08/05/25 08:00 Actual Procedures p Pacer with A/V Leads (Dual) - Per Gant MD Diagnostic Imagining Performed 08/05/25 08:30 EP Lab Images for PACS ONCE Pending Results Patient Have Any Pending Studies at Discharge: Yes (protein serum and urine electrophoresis) Discharge Instructions Given to Patient (Per Discharging Provider) You were admitted to [facility] from August 04 to the 2024 due to symptomatic complete heart block with your ZIO external gambling monitor. This was treated with pacemaker insertion on August 05, [address] Gant. Pacemaker checks in the morning were normal and CXR did not show any pneumothorax. Please follow post operative instructions below. No specific treatment is recommended for your previously diagnosed superficial thrombophlebitis other than compression alone. If this is getting worse recommend contacting your primary care provider to consider repeat ultrasound and possible anticoagulation at that time. Please follow up with cardiology regarding ongoing workup of your cardiomyopathy including labs outstanding on discharge and plan to organize cardiac MRI as an outpatient. ACTIVITY RECOMMENDATIONS: * Do not raise affected arm over head for 2 weeks. SPECIAL CARE INSTRUCTIONS: * If bleeding occurs, apply direct pressure to area for 5 minutes. * Call your doctor if you have severe pain, fever, drainage or bleeding at site. * Keep dressing on and dry for 48 hours then remove. * Keep any scheduled doctor's appointment. * Implant Card - hand held device with website information given. SKIN IRRITATION: * You may experience some redness and/or swelling in the area where radiation was administered. If any skin irritation occurs, please contact your family physician. FOLLOW UP VISIT: Keep any scheduled doctor appointments. Total Time Total Time Spent Total Time Spent (In Minutes): 40 Coding Level of Care Code 17623 INP/OBS DISCH >30 MIN Diagnoses Complete heart block I44.2 Superficial thrombophlebitis I80.8 Laterality: left Superficial thrombophlebitis-Involved body area: upper extremity
[2025-08-08 07:22] LABS: Protein, Urine Random <4 mg/dL (5-25); Ur Albumin % 100 %; Ur Alpha-1-globulin % 0 %; Ur Alpha-2-globulin % 0 %; Ur Beta Globulin % 0 %; Ur Gamma Globulin % 0 %; Ur Protein/Creat Ratio mg/g NOTE mg/g creat (25-148); Urine Abnormal Protein Band 1 DNR mg/dL (NONE DETECTED); Urine Abnormal Protein Band 2 DNR mg/dL (NONE DETECTED); Urine Abnormal Protein Band 3 DNR mg/dL (NONE DETECTED)
--- NOTE | 2025-08-08 15:43 | Electrocardiogram Report ---
Test Reason : Blood Pressure : */* mmHG Vent. Rate : 69 BPM Atrial Rate : 69 BPM P-R Int : 190 ms QRS Dur : 92 ms QT Int : 392 ms P-R-T Axes : 31 45 40 degrees QTcB Int : 420 ms Atrial-sensed ventricular-paced rhythm Abnormal ECG When compared with ECG of 04-Aug-2025 14:14, Electronic ventricular pacemaker has replaced Sinus rhythm Confirmed by Per Gant ([id number]) on 08/08/2025 3:42:42 PM Referred By: REFERRED SELF Confirmed By: Per Gant
== END 2025-08-06 12:32 | disposition home or self-care (01) | DRG 243 ==
LOC: ED 10:32 → SUATTDRO 11:36 → 2E 11:36
DX: E78.00 Pure hypercholesterolemia, unspecified; I44.2 Atrioventricular block, complete; R00.1 Bradycardia, unspecified; L80 Vitiligo; I80.8 Phlebitis and thrombophlebitis of other sites; I10 Essential (primary) hypertension; I42.9 Cardiomyopathy, unspecified; I82.612 Acute embolism and thrombosis of superficial veins of left upper extremity; Z79.899 Other long term (current) drug therapy